=== PATIENT | male | born 1980 | race Caucasian/White ===

== ENCOUNTER 2017-07-19 14:53 | Emergency (ER) | payer OTHER ==
[2017-07-19 15:08] VITALS: BP 120/80
[2017-07-19] MEDS ORDERED: NORCO 5/325 PO ONE (16:18)
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
== END 2017-07-19 16:58 | disposition home or self-care (01) ==
LOC: ED 14:53
DX: S92.902S Unspecified fracture of left foot, sequela (principal); X58.XXXS Exposure to other specified factors, sequela
CPT/HCPCS: 99283